=== PATIENT | male | born 1995 | race Caucasian/White ===

== ENCOUNTER → 2022-12-11 | Emergency (ER) | payer SELFPAY ==
[~2022-12-11] VITALS: Ht 160 cm; Wt 64.0 kg
[~2022-12-11] MED LIST: IBUP-2029 MT; IBUPROFEN 600MG TABLET PO ONE
[2022-12-11 20:14] VITALS: BP 128/90; PULSE 91; RESP 16; TEMP 98.4; O2SAT 100
== END ==
LOC: ER 19:56
DX: M25.552 Pain in left hip (principal); V49.49XA Driver injured in collision with other motor vehicles in traffic accident, initial encounter; Y93.89 Activity, other specified; Y92.89 Other specified places as the place of occurrence of the external cause; Y99.8 Other external cause status
CPT/HCPCS: 73502; 99283